=== PATIENT | female | born 1995 | race American Indian/Alaskan Native ===

== ENCOUNTER 2016-11-05 18:15 | Emergency (ER) | payer MEDICAID, OTHER ==
[2016-11-05 19:54] VITALS: BP 132/73
[2016-11-05] MEDS ORDERED: Acetaminophen 325 MG Tab PO ONE (20:46)
[2016-11-05] MEDS ORDERED: Acetaminophen 325 MG Tab ONE (20:57)
--- NOTE | 2016-11-05 20:58 | EDM.PDOC ---
ED HPI GI/ABDOMINAL - General Chief Complaint: Genitourinary Problem Stated Complaint: BLADDER INFECTION Time Seen by Provider: 11/05/16 19:30 Source of Information: Reports: Patient History Limitations: Reports: No limitations - History of Present Illness INITIAL COMMENTS - FREE TEXT/NARRATIVE: sick since saturday with increased frequency of urination with back pain. Last tylenol noon today. LMP May, No period yet since previous depo, unsure last shot. 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: - Past Surgical History Musculoskeletal Surgical History: Reports: Other (see below) Other Musculoskeletal Surgeries/Procedures:: wrist surgery Social & Family History - Family History Family Medical History: Noncontributory - Tobacco Use Smoking Status *Q: Former Smoker Years of Tobacco use: 1 Used Tobacco, but Quit: Yes Month Tobacco Last Used: october 2013 Second Hand Smoke Exposure: No - Caffeine Use Caffeine Use: Reports: None - Alcohol Use Days Per Week of Alcohol Use: 0 - Recreational Drug Use Recreational Drug Use: No - Living Situation & Occupation Living situation: Reports: with family Occupation: employed ED ROS GENERAL - Review of Systems Review Of Systems: See Below Constitutional: Reports: fever HEENT: Reports: No symptoms Respiratory: Reports: No Symptoms Cardiovascular: Reports: No symptoms GI/Abdominal: Reports: Abdominal pain : Reports: dysuria, flank pain, frequency, irregular menses, urgency Skin: Reports: no symptoms Neurological: Reports: No Symptoms ED EXAM, GI/ABD - Physical Exam Exam: See Below Exam Limited By: No limitations General Appearance: alert, mild distress Eyes: bilateral: EOMI Ears: normal external exam, normal TMs Nose: normal inspection Throat/Mouth: Normal voice, No airway compromise, Inflammation (mild) Head: atraumatic, normocephalic Neck: lymphadenopathy (L), lymphadenopathy (R) (mild) Respiratory/Chest: no respiratory distress, lungs clear, normal breath sounds Cardiovascular: normal peripheral pulses, regular rate, rhythm, tachycardia GI/Abdominal: normal bowel sounds, soft, tenderness (suprapubic) Back Exam: paraspinal tenderness (low lumbar) Extremities: normal inspection Neurological: alert, oriented, normal cognition Psychiatric: normal affect Skin Exam: Warm, Dry, Intact, Normal color. No: Diaphoretic, Erythema Course - Vital Signs Last Recorded V/S: Last Vital Signs Temp 101 F H 11/05/16 19:25 Pulse 121 H 11/05/16 19:25 Resp 16 11/05/16 19:25 BP 132/73 11/05/16 19:25 Pulse Ox 100 11/05/16 19:25 - Orders/Labs/Meds Labs: Laboratory Tests 11/05/16 11/05/16 Range/Units 19:34 20:43 HCG, Qual Negative Urine Color Yellow (YELLOW) Urine Appearance Cloudy (CLEAR) Urine pH 7.0 (5.0-9.0) Ur Specific [place] 1.015 (1.005-1.030) Urine Protein 30 H (NEGATIVE) Urine Glucose (UA) Negative (NEGATIVE) Urine Ketones Negative (NEGATIVE) Urine Occult Blood Moderate H (NEGATIVE) Urine Nitrite Negative (NEGATIVE) Urine Bilirubin Negative (NEGATIVE) Urine Urobilinogen 0.2 (0.2-1.0) mg/dL Ur Leukocyte Esterase Small H (NEGATIVE) Urine RBC 5-10 H /HPF Urine WBC 40-50 H (0-5/HPF) /HPF Ur Epithelial Cells Few /HPF Urine Bacteria Many H (0-FEW/HPF) /HPF Meds: Medications Discontinued Medications Generic Name Dose Route Start Last Admin Trade Name Moiz PRN Reason Stop Dose Admin Acetaminophen 650 mg 11/05/16 20:46 11/05/16 20:55 Tylenol PO 11/05/16 20:47 650 mg NOW ONE Administration Acetaminophen Confirm 11/05/16 20:57 11/05/16 21:06 Tylenol Administered 11/05/16 20:58 Not Given Dose 325 mg .ROUTE .STK-MED ONE Nitrofurantoin Macrocrystals 100 mg 11/05/16 21:29 11/05/16 21:35 Macrobid PO 11/05/16 21:30 100 mg ONETIME ONE Administration Penicillin G Procaine/Benzathine 1.2 millunits 11/05/16 21:39 11/05/16 21:44 Bicillin C-R 600/600 IM 11/05/16 21:40 1.2 millunits ONETIME ONE Administration Phenazopyridine HCl 190 mg 11/05/16 21:29 11/05/16 21:35 Urinary Pain Relief PO 11/05/16 21:30 190 mg ONETIME ONE Administration Departure - Departure Time of Disposition: 21:32 Disposition: Home, Self-Care 01 Condition: fair Clinical Impression: Strep pharyngitis UTI (urinary tract infection) Qualifiers: Urinary tract infection type: acute cystitis Hematuria presence: with hematuria Qualified Code(s): N30.01 - Acute cystitis with hematuria Instructions: Strep Throat, [id number], Urinary Tract Infection, Adult, Easy- to-Read Referrals: Tia Paniagua [Primary Care Provider] - Forms: ED Department Discharge Additional Instructions: increase fluid intake tylenol or ibuprofen alternate every 4 hours for pain / fever clinic recheck this week Macrobid 100mg twice daily for 5 days phenazopyridine 190mg every 8 hours as needed for urinary symptoms
[2016-11-05] MEDS ORDERED: Nitrofurantoin Monohydrate/Macrocrystalline 100 MG Cap PO ONE (21:29)
[2016-11-05] MEDS ORDERED: Phenazopyridine 95 MG Tab PO ONE (21:29)
[2016-11-05] MEDS ORDERED: Penicillin G Benzathine/Procaine 600-600 1.2 Millunits/2 ML Syringe IM ONE (21:39)
== END 2016-11-05 22:15 | disposition home or self-care (01) ==
LOC: DL.ED 18:15
DX: N30.01 Acute cystitis with hematuria (principal); J02.0 Streptococcal pharyngitis; Z87.891 Personal history of nicotine dependence
CPT/HCPCS: 36415; 81001; 84703; 87430; 96372; 99284; A9270; J0558; 99283

== ENCOUNTER 2018-04-21 16:59 | Emergency (ER) | payer MEDICAID, OTHER ==
[2018-04-21] MEDS ORDERED: diphenhydrAMINE 25 MG Tab PO ONE (17:00)
[2018-04-21] MEDS ORDERED: Amoxicillin/Clavulanate K 875-125 MG Tab PO ONE (17:00)
[2018-04-21 17:05] VITALS: BP 120/72
[2018-04-21] MEDS ORDERED: Amoxicillin 500 MG Cap PO ONE (17:19)
[2018-04-21] MEDS ORDERED: Ibuprofen 800 MG Tab PO ONE (17:21)
[2018-04-21] MEDS ORDERED: GI Cocktail Oral Solution 30 ML PO ONE (17:21)
[2018-04-21] MEDS ORDERED: Amoxicillin/Clavulanate K 875-125 MG Tab ONE (18:25)
--- NOTE | 2018-04-21 18:25 | EDM.PDOC ---
Scribed by Verito Hutchinson 04/21/18 [id number] for Vladimir Schmidt MD ED HPI GENERAL MEDICAL PROBLEM - General Chief Complaint: ENT Problem Stated Complaint: HEADACHE, BACK PAIN, HARD TO SWALLOW [id number] Time Seen by Provider: 04/21/18 17:03 Source of Information: Reports: Patient, RN, RN Notes Reviewed History Limitations: Reports: No Limitations - History of Present Illness INITIAL COMMENTS - FREE TEXT/NARRATIVE: Patient presents to ER with complaint that she has been sick for 3 days with sore throat, bilateral earache, headache, fever, chills and body aches. Denies nausea or vomiting. States that she has had very little cough. She denies any urinary symptoms. Onset Date: 04/19/18 Duration: Getting Worse Location: Reports: Generalized Quality: Reports: Ache Severity: Moderate Improves with: Reports: None Worsens with: Reports: None Associated Symptoms: Reports: No Other Symptoms Headache Pain Score (Numeric/FACES): 9 - Related Data Allergies Allergy/AdvReac Type Severity Reaction Status Date / Time No Known Allergies Allergy Verified 04/21/18 17:05 Home Meds: Home Meds Acetaminophen [Tylenol] 11/05/16 [History] medroxyPROGESTERone [Depo-Provera] 1 dose IM ASDIRECTED 11/05/16 [History] Past Medical History - Past Health History Medical/Surgical History: Denies 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 ED EXAM, ENT - Physical Exam Exam: See Below Exam Limited By: No Limitations General Appearance: Other (acutely ill but nontoxic looking) Eye Exam: Bilateral Eye: EOMI, PERRL, Other (watery slightly swollen conjunctiva without erythema) Ears: Other (bilateral TM erythematous, bulging and dull. No drainage. ) Nose: Other (mild congestion small amount of clear drainage. ) Mouth/Throat: Pharyngeal Erythema, Throat Swelling. No: Tongue Swelling, Tonsillar Erythema, Tonsillar Exudates, Tonsillar Swelling Head: Atraumatic, Normocephalic Neck: Other (cervical lymphadenopathy. No nuchal rigidity) Respiratory/Chest: No Respiratory Distress, Lungs Clear, Normal Breath Sounds, No Accessory Muscle Use, Chest Non-Tender Cardiovascular: Normal Peripheral Pulses, Regular Rate, Rhythm GI/Abdominal: Normal Bowel Sounds (Female) Exam: Deferred Rectal (Female) Exam: Deferred Back: Normal Inspection Extremities: Normal Inspection, Normal Range of Motion, Non-Tender, No Pedal Edema, Normal Capillary Refill Neurological: Alert, Oriented, CN II-XII Intact, Normal Cognition, Normal Gait, Normal Reflexes, No Motor/Sensory Deficits Psychiatric: Normal Affect, Normal Mood Skin: Warm, Dry, Intact, Normal Color, No Rash Course - Vital Signs Last Recorded V/S: Last Vital Signs Temp 36.1 C 04/21/18 17:01 Pulse 99 04/21/18 17:01 Resp 18 04/21/18 17:01 BP 120/72 04/21/18 17:01 Pulse Ox 98 04/21/18 17:01 - Orders/Labs/Meds Orders: Active Orders 24 hr Category Date Time Status CHLAMYDIA AND GONORRHEA BY TMA Routine Lab 04/21/18 17:11 Received CULTURE STREP A CONFIRMATION [] Stat Lab 04/21/18 17:11 Results STREP SCRN A RAPID W CULT CONF [] Stat Lab 04/21/18 17:11 Results Labs: Laboratory Tests 04/21/18 Range/Units 17:11 Urine Color Yellow (YELLOW) Urine Appearance Cloudy (CLEAR) Urine pH 6.0 (5.0-9.0) Ur Specific [place] 1.020 (1.005-1.030) Urine Protein Negative (NEGATIVE) Urine Glucose (UA) Negative (NEGATIVE) Urine Ketones Negative (NEGATIVE) Urine Occult Blood Trace-intact H (NEGATIVE) Urine Nitrite Negative (NEGATIVE) Urine Bilirubin Negative (NEGATIVE) Urine Urobilinogen 0.2 (0.2-1.0) mg/dL Ur Leukocyte Esterase Small H (NEGATIVE) Urine RBC 0-5 /HPF Urine WBC 5-10 H (0-5/HPF) /HPF Ur Epithelial Cells Moderate H /HPF Amorphous Sediment Few (0/HPF) /HPF Urine Bacteria Moderate H (0-FEW/HPF) /HPF Urine Mucus Few H /LPF Rapid strep negative. Meds: Medications Discontinued Medications Generic Name Dose Route Start Last Admin Trade Name Freq PRN Reason Stop Dose Admin Al Hydroxide/Mg Hydroxide 30 ml 04/21/18 17:21 04/21/18 17:26 Gi Cocktail PO 04/21/18 17:22 30 ml ONETIME ONE Administration Amoxicillin 500 mg 04/21/18 17:19 04/21/18 17:26 Amoxil PO 04/21/18 17:20 500 mg ONETIME ONE Administration Ibuprofen 800 mg 04/21/18 17:21 04/21/18 17:26 Motrin PO 04/21/18 17:22 800 mg ONETIME ONE Administration Departure - Departure Time of Disposition: 18:18 Disposition: Home, Self-Care 01 Condition: Good Clinical Impression: Viral URI Otitis media Qualifiers: Otitis media type: suppurative Chronicity: acute Laterality: bilateral Recurrence: not specified as recurrent Spontaneous tympanic membrane rupture: without spontaneous rupture Qualified Code(s): H66.003 - Acute suppurative otitis media without spontaneous rupture of ear drum, bilateral Acute headache Qualifiers: Headache type: unspecified Intractability: not intractable Qualified Code(s): R51 - Headache - Discharge Information Instructions: Otitis Media, Adult, [id number], Viral Respiratory Infection, [id number], General Headache Without Cause, [id number] Forms: ED Department Discharge Additional Instructions: RX: Augmentin 875mg. RX: Zyrtec 10mg. RX: Naprosyn 500mg. Follow up in clinic if not improving in 2 to 3 days. Rest and drink plenty of fluids. - My Orders Last 24 Hours: My Active Orders 04/21/18 17:11 CHLAMYDIA AND GONORRHEA BY TMA Routine CULTURE STREP A CONFIRMATION [RM] Stat STREP SCRN A RAPID W CULT CONF [RM] Stat - Assessment/Plan Last 24 Hours: My Active Orders 04/21/18 17:11 CHLAMYDIA AND GONORRHEA BY TMA Routine CULTURE STREP A CONFIRMATION [RM] Stat STREP SCRN A RAPID W CULT CONF [RM] Stat I have read and agree with the documentation that has been completed regarding this visit. By signing this record, I attest that the documentation was completed in my physical presence and is an accurate record of the encounter.
[2018-04-21] MEDS ORDERED: diphenhydrAMINE 25 MG Tab ONE (18:26)
== END 2018-04-21 18:30 | disposition home or self-care (01) ==
LOC: DL.ED 16:59
DX: J06.9 Acute upper respiratory infection, unspecified (principal); H66.003 Acute suppurative otitis media without spontaneous rupture of ear drum, bilateral; R51 Headache
CPT/HCPCS: 81001; 87081; 87430; 87491; 87591; 99284; A9270

== ENCOUNTER 2018-05-24 00:40 | Emergency (ER) | payer MEDICAID ==
[2018-05-24 00:45] VITALS: BP 137/89
[2018-05-24] MEDS ORDERED: LORazepam 0.5 MG Tab PO ONE (00:57)
[2018-05-24] MEDS ORDERED: hydrOXYzine HCl 25 MG Tab ONE (01:04)
--- NOTE | 2018-05-24 01:17 | EDM.PDOCBH ---
ED HPI GENERAL MEDICAL PROBLEM - General Chief Complaint: Behavioral/Psych Stated Complaint: CANT BREATHE AND ANXIETY [id number] Time Seen by Provider: 05/24/18 00:45 Source of Information: Reports: Patient History Limitations: Reports: No Limitations - History of Present Illness INITIAL COMMENTS - FREE TEXT/NARRATIVE: C/o panic attack. Hx anxiety. Stes tonight triggered by learning dad was placed in an induced coma. Hx brain trauma. Has been on prozac, Stated was told when had panic attack to take additional. Took one about one hour prior but wan't helping. Denies drug use, rare tobacco use. Etoh yesterday and normally doesn't drink. 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: Psychiatric History: Reports: Anxiety, Depression - Past Surgical History Musculoskeletal Surgical History: Reports: Other (See Below) Social & Family History - Family History Family Medical History: Noncontributory - Tobacco Use Smoking Status *Q: Current Every Day Smoker Years of Tobacco use: 1 Packs/Tins Daily: 0.1 Second Hand Smoke Exposure: Yes - Caffeine Use Caffeine Use: Reports: None - Recreational Drug Use Recreational Drug Use: No - Living Situation & Occupation Living situation: Reports: with Family Occupation: Employed ED ROS GENERAL - Review of Systems Review Of Systems: ROS reveals no pertinent complaints other than HPI. ED EXAM, BEHAVIORAL HEALTH - Physical Exam Exam: See Below Exam Limited By: No Limitations General Appearance: Alert, Moderate Distress (crying, hyperventilating) Eye Exam: Bilateral Eye: EOMI, PERRL Ears: Normal External Exam, Normal TMs Nose: Normal Inspection Throat/Mouth: Normal Inspection, Normal Lips, Normal Voice Head: Atraumatic, Normocephalic Neck: Normal Inspection Respiratory/Chest: No Respiratory Distress. No: Normal Breath Sounds Cardiovascular: Normal Peripheral Pulses, Regular Rate, Rhythm, Tachycardia GI/Abdominal: Normal Bowel Sounds Neurological: Alert, Normal Cognition, Oriented x 3 Psychiatric: Alert, Restless, Tearful Skin Exam: Warm, Dry, Intact, Normal color COURSE, BEHAVIORAL HEALTH COMP - Course Vital Signs: Last Vital Signs Temp 97.5 F 05/24/18 00:43 Pulse 134 H 05/24/18 00:43 Resp 22 H 05/24/18 00:43 BP 137/89 05/24/18 00:43 Pulse Ox 100 05/24/18 00:43 Orders, Labs, Meds: Medications Discontinued Medications Generic Name Dose Route Start Last Admin Trade Name Moiz PRN Reason Stop Dose Admin Acetaminophen 650 mg 05/24/18 01:18 05/24/18 01:21 Tylenol PO 05/24/18 01:19 650 mg NOW ONE Administration Hydroxyzine HCl Confirm 05/24/18 01:04 05/24/18 01:08 Atarax Administered 05/24/18 01:05 Not Given Dose 50 mg .ROUTE .STK-MED ONE Lorazepam 0.5 mg 05/24/18 00:57 05/24/18 01:07 Ativan PO 05/24/18 00:58 0.5 mg ONETIME ONE Administration Departure - Departure Time of Disposition: 01:12 Disposition: Home, Self-Care 01 Condition: Good Clinical Impression: Anxiety, Panic disorder - Discharge Information *PRESCRIPTION DRUG MONITORING PROGRAM REVIEWED*: Not Applicable Instructions: Panic Attack, [id number] Referrals: Scarlet Chaidez NP [Primary Care Provider] - Forms: ED Department Discharge Additional Instructions: avoid caffeine hydroxyzine 25mg one every 6 hours as needed for severe anxiety clinic follow up this week to discuss alternatives for panic episodes
[2018-05-24] MEDS ORDERED: Acetaminophen 325 MG Tab PO ONE (01:18)
== END 2018-05-24 01:22 | disposition home or self-care (01) ==
LOC: DL.ED 00:40
DX: F41.0 Panic disorder [episodic paroxysmal anxiety] (principal); F17.210 Nicotine dependence, cigarettes, uncomplicated
CPT/HCPCS: 99283; A9270

== ENCOUNTER 2018-09-23 17:11 | Emergency (ER) | payer MEDICAID ==
[2018-09-23 18:01] VITALS: BP 126/77
--- NOTE | 2018-09-23 18:38 | EDM.PDOC ---
Scribed by Verito Hutchinson 09/23/18 1835 for Vladimir Schmidt MD <Vladimir Schmidt - Last Filed: 09/23/18 18:37> ED HPI GENERAL MEDICAL PROBLEM - General Chief Complaint: Headache Stated Complaint: BAD HEADACHES [id number] Time Seen by Provider: 09/23/18 18:03 Source of Information: Reports: Patient, RN, RN Notes Reviewed History Limitations: Reports: No Limitations - History of Present Illness INITIAL COMMENTS - FREE TEXT/NARRATIVE: Patient presents to the ER with a headache for the last month. She was seen in the clinic 2 days ago. She has also seen an eye doctor. Denies history of migraines. Admits to history of sinus disease. Pain is located in the frontal and maxillary facial region. 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 - Related Data Allergies Allergy/AdvReac Type Severity Reaction Status Date / Time No Known Allergies Allergy Verified 09/23/18 17:57 Home Meds: Home Meds FLUoxetine HCl [Prozac] 20 mg PO DAILY 05/24/18 [History] Past Medical History - Past Health History Medical/Surgical History: Denies Medical/Surgical History HEENT History: Reports: Sinusitis Genitourinary History: Reports: UTI, Recurrent 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 - Physical Exam Exam: See Below Exam Limited By: No Limitations General Appearance: Alert, WD/WN, No Apparent Distress Eye Exam: Bilateral Eye: EOMI, Normal Inspection, PERRL Ears: Normal External Exam, Normal Canal, Hearing Grossly Normal, Normal TMs Nose: No Blood, Nasal Drainage (Small amt. of clear mucus), Other (Inflamed nasal mucosa, injected turbinates) Throat/Mouth: Normal Inspection, Normal Lips, Normal Teeth, Normal Gums, Normal Oropharynx, Normal Voice, No Airway Compromise Head Exam: Atraumatic, Normocephalic, Sinus Tenderness (Frontal and maxillary). No: Scalp Tenderness, Facial Swelling Neck: Normal Inspection, Supple, Non-Tender, Full Range of Motion. No: Lymphadenopathy (L), Lymphadenopathy (R) Respiratory/Chest: No Respiratory Distress, Lungs Clear, Normal Breath Sounds, No Accessory Muscle Use, Chest Non-Tender Cardiovascular: Regular Rate, Rhythm GI/Abdominal: Normal Bowel Sounds, Soft, Non-Tender (Female) Exam: Deferred Neuro Exam (Abbreviated): Alert, Oriented, CN II-XII Intact, Normal Cognition, Normal Gait, No Motor/Sensory Deficits Back Exam: Normal Inspection Extremities: Normal Inspection Psychiatric: Normal Affect, Normal Mood Skin Exam: Warm, Dry, Intact, Normal Color, No Rash Course - Vital Signs Last Recorded V/S: Last Vital Signs Temp 97.8 F 09/23/18 18:00 Pulse 76 09/23/18 18:00 Resp 16 09/23/18 18:00 BP 126/77 09/23/18 18:00 Pulse Ox 97 09/23/18 18:00 - Orders/Labs/Meds Orders: Active Orders 24 hr Category Date Time Status Head wo Cont [CT] Urgent Exams 09/23/18 18:36 Ordered Max Facial Sinus wo Cont [CT] Urgent Exams 09/23/18 18:35 Taken CULTURE URINE [RM] Stat Lab 09/23/18 19:56 Received Sodium Chloride 0.9% [Normal Saline] 1,000 ml Med 09/23/18 20:00 Active IV .BOLUS Medication Orders Sodium Chloride (Normal Saline) 1,000 mls @ 999 mls/hr IV .BOLUS ONE Stop: 09/23/18 21:00 Last Admin: 09/23/18 20:07 Dose: 999 mls/hr Labs: Laboratory Tests 09/23/18 09/23/18 09/23/18 Range/Units 18:58 18:58 18:58 WBC 7.4 (5.0-10.0) 10^3/uL RBC 4.70 (4.2-5.4) 10^6/uL Hgb 13.6 D (12.0-16.0) g/dL Hct 41.8 (37.0-47.0) % MCV 88.9 D (80-100) fL MCH 28.9 (27.0-34.0) pg MCHC 32.5 L (33.0-35.0) g/dL Plt Count 361 D (150-450) 10^3/uL Neut % (Auto) 60.6 (42.2-75.2) % Lymph % (Auto) 28.8 (20.5-50.1) % [place] % (Auto) 7.9 (2-8) % Eos % (Auto) 2.4 (1.0-3.0) % Baso % (Auto) 0.3 (0.0-1.0) % Sodium 136 (135-145) mmol/L Potassium 4.1 (3.6-5.0) mmol/L Chloride 102 (101-111) mmol/L Carbon Dioxide 23.0 (21.0-31.0) mmol/L Anion Gap 15.1 BUN 11 (7-18) mg/dL Creatinine 0.6 (0.6-1.3) mg/dL Est Cr Clr Drug Dosing 141.81 mL/min Estimated GFR (MDRD) > 60 BUN/Creatinine Ratio 18.33 Glucose 73 L (74-105) mg/dL Calcium 9.1 (8.4-10.2) mg/dl Total Bilirubin 0.5 (0.2-1.0) mg/dL AST 26 (10-42) IU/L ALT 22 (10-60) IU/L Alkaline Phosphatase 85 (42-121) IU/L C-Reactive Protein 1.0 (0.0-1.3) mg/dL Total Protein 8.3 H (6.7-8.2) g/dl Albumin 4.0 (3.2-5.5) g/dl Globulin 4.3 Albumin/Globulin Ratio 0.93 Urine Color (YELLOW) Urine Appearance (CLEAR) Urine pH (5.0-9.0) Ur Specific [place] (1.005-1.030) Urine Protein (NEGATIVE) Urine Glucose (UA) (NEGATIVE) Urine Ketones (NEGATIVE) Urine Occult Blood (NEGATIVE) Urine Nitrite (NEGATIVE) Urine Bilirubin (NEGATIVE) Urine Urobilinogen (0.2-1.0) mg/dL Ur Leukocyte Esterase (NEGATIVE) Urine HCG, Qual 09/23/18 09/23/18 Range/Units 19:56 19:56 WBC (5.0-10.0) 10^3/uL RBC (4.2-5.4) 10^6/uL Hgb (12.0-16.0) g/dL Hct (37.0-47.0) % MCV (80-100) fL MCH (27.0-34.0) pg MCHC (33.0-35.0) g/dL Plt Count (150-450) 10^3/uL Neut % (Auto) (42.2-75.2) % Lymph % (Auto) (20.5-50.1) % [place] % (Auto) (2-8) % Eos % (Auto) (1.0-3.0) % Baso % (Auto) (0.0-1.0) % Sodium (135-145) mmol/L Potassium (3.6-5.0) mmol/L Chloride (101-111) mmol/L Carbon Dioxide (21.0-31.0) mmol/L Anion Gap BUN (7-18) mg/dL Creatinine (0.6-1.3) mg/dL Est Cr Clr Drug Dosing mL/min Estimated GFR (MDRD) BUN/Creatinine Ratio Glucose (74-105) mg/dL Calcium (8.4-10.2) mg/dl Total Bilirubin (0.2-1.0) mg/dL AST (10-42) IU/L ALT (10-60) IU/L Alkaline Phosphatase (42-121) IU/L C-Reactive Protein (0.0-1.3) mg/dL Total Protein (6.7-8.2) g/dl Albumin (3.2-5.5) g/dl Globulin Albumin/Globulin Ratio Urine Color Yellow (YELLOW) Urine Appearance Slightly cloudy (CLEAR) Urine pH 5.5 (5.0-9.0) Ur Specific [place] >= 1.030 (1.005-1.030) Urine Protein Negative (NEGATIVE) Urine Glucose (UA) Negative (NEGATIVE) Urine Ketones Negative (NEGATIVE) Urine Occult Blood Trace-intact H (NEGATIVE) Urine Nitrite Negative (NEGATIVE) Urine Bilirubin Negative (NEGATIVE) Urine Urobilinogen 0.2 (0.2-1.0) mg/dL Ur Leukocyte Esterase Trace H (NEGATIVE) Urine HCG, Qual Negative Meds: Medications Generic Name Dose Route Start Last Admin Trade Name Moiz PRN Reason Stop Dose Admin Sodium Chloride 1,000 mls @ 999 mls/hr 09/23/18 20:00 09/23/18 20:07 Normal Saline IV 09/23/18 21:00 999 mls/hr .BOLUS ONE Administration Discontinued Medications Generic Name Dose Route Start Last Admin Trade Name Moiz PRN Reason Stop Dose Admin Diphenhydramine HCl 50 mg 09/23/18 20:00 09/23/18 20:07 Benadryl IVPUSH 09/23/18 20:01 50 mg ONETIME ONE Administration Ondansetron HCl 4 mg 09/23/18 20:03 09/23/18 20:10 Zofran IV 09/23/18 20:04 4 mg ONETIME ONE Administration - Re-Assessments/Exams Free Text/Narrative Re-Assessment/Exam: 09/23/18 18:59 Care of pt transferred 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 Departure - Departure Disposition: Home, Self-Care 01 Clinical Impression: Arachnoid cyst Headache Qualifiers: Headache type: unspecified Headache chronicity pattern: acute headache Intractability: intractable Qualified Code(s): R51 - Headache - Discharge Information Instructions: Arachnoid Cysts, Migraine Headache, [id number], General Headache Without Cause, [id number] Forms: ED Department Discharge Additional Instructions: Drink plenty of water Continue to use Ibuprofen and Tylenol as directed for headaches Call Scarlet Chaidez's office tomorrow and request a referral to Neurology at [facility] in [place] I discussed your head CT with Dr. Maldonado at [facility] in [place] and he would like you to follow up in the clinic in [place] next week. - My Orders Last 24 Hours: My Active Orders 09/23/18 19:56 CULTURE URINE [RM] Stat 09/23/18 20:00 Sodium Chloride 0.9% [Normal Saline] 1,000 ml IV .BOLUS - Assessment/Plan Last 24 Hours: My Active Orders 09/23/18 19:56 CULTURE URINE [RM] Stat 09/23/18 20:00 Sodium Chloride 0.9% [Normal Saline] 1,000 ml IV .BOLUS <Stephanie Mart - Last Filed: 09/23/18 20:19> Course - Radiology Interpretation Free Text/Narrative:: Head CT: FINDINGS: Brain: Extra-axial infratentorial cyst along left cerebellar hemisphere measuring 2 x 3 x 1.5 cm, consistent with arachnoid cyst. There is no sign of acute intracranial hemorrhage or cerebral edema. Midline shift: No midline shift. Ventricles: Normal. No hydrocephalus. Bones/joints: Normal. Skull base and overlying calvarium are intact. No lytic or osteosclerotic lesions. Sinuses: Visualized sinuses are unremarkable. No acute sinusitis. Mastoid air cells: Visualized mastoid air cells are unremarkable. No mastoid effusion. Soft tissues: Unremarkable. IMPRESSION: 1. No acute intracranial process. 2. Left posterior fossa arachnoid cyst. Thank you for allowing us to participate in the care of your patient. Dictated and Authenticated by: Adam Hightower MD 09/23/2018 7:20 PM Central Time ([place] & [place]) Maxillofacial CT: FINDINGS: Frontal sinuses: Normal. No air-fluid levels. Ethmoid air cells: Normal. No air-fluid levels. Sphenoid sinuses: Normal. No air-fluid levels. Maxillary sinuses: Normal. No air-fluid levels. Orbits: Orbital floors, roofs, lateral post and the lamina papyracea are intact. There is no retroorbital emphysema, fluid collection, mass, or stranding of intraconal fat. Extraocular muscles are normal in caliber. Optic nerves are normal. Globes are normal in contour and density. Nasal cavity/Septum: Unremarkable. Soft tissues: No facial soft tissue swelling, emphysema or foreign body. Bones/joints: There is spina bifida occulta at C1, a congenital variant.There are no suspicious lytic or osteosclerotic lesions.Skull base, maxillae, zygomatic arches, pterygoid processes, hard palate, nasal bones and mandible are intact. IMPRESSION: Clear paranasal sinuses. Thank you for allowing us to participate in the care of your patient. Dictated and Authenticated by: Adam Hightower MD 09/23/2018 7:21 PM Central Time ([place] & [place]) See rad report Departure - Departure Time of Disposition: 20:17 Condition: Fair - Discharge Information *PRESCRIPTION DRUG MONITORING PROGRAM REVIEWED*: No *COPY OF PRESCRIPTION DRUG MONITORING REPORT IN PATIENT JENNY: No I have read and agree with the documentation that has been completed regarding this visit. By signing this record, I attest that the documentation was completed in my physical presence and is an accurate record of the encounter.
[2018-09-23 19:23] LABS: ANION GAP 15.1; CHLORIDE,CL 102 mmol/L (101-111); SODIUM,NA 136 mmol/L (135-145)
[2018-09-23] MEDS ORDERED: diphenhydrAMINE 50 MG/ML SDV IVPUSH ONE (20:00)
[2018-09-23] MEDS ORDERED: Sodium Chloride 0.9% 1,000 ML IV ONE (20:00)
[2018-09-23] MEDS ORDERED: Ondansetron 4 MG/2 ML SDV IV ONE (20:03)
== END 2018-09-23 20:35 | disposition home or self-care (01) ==
LOC: DL.ED 17:11
DX: G93.0 Cerebral cysts (principal); R51 Headache; Z79.899 Other long term (current) drug therapy
CPT/HCPCS: 36415; 70450; 70486; 80053; 81001; 81025; 85025; 86140; 87086; 96374; 96375; 99284; J1200; J2405; J7030

== ENCOUNTER 2019-09-15 15:59 | Emergency (ER) | payer MEDICAID ==
[2019-09-15] MEDS ORDERED: HYDROmorphone 1 MG/ML Syringe IVPUSH ONE (16:15)
[2019-09-15 17:27] VITALS: BP 145/75; PULSE 78
--- NOTE | 2019-09-15 17:30 | EDM.PDOC ---
ED HPI GENERAL MEDICAL PROBLEM - General Chief Complaint: Lower Extremity Injury/Pain Stated Complaint: AMBULANCE Time Seen by Provider: 09/15/19 16:10 Source of Information: Reports: Patient - History of Present Illness INITIAL COMMENTS - FREE TEXT/NARRATIVE: Patricia is a 24-year-old woman who comes in today after having her left ankle squished between the car door and the wall of the building. She is having quite a bit of pain on the inner portion of her left ankle. She has significant pain with any movement of this. 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: Neurological History: Reports: Other (See Below) Other Neuro History: cyst in left brain Psychiatric History: Reports: Anxiety, Depression Endocrine/Metabolic History: Reports: Diabetes, Type II - Past Surgical History Musculoskeletal Surgical History: Reports: Other (See Below) Social & Family History - Family History Family Medical History: Noncontributory - Caffeine Use Caffeine Use: Reports: Energy Drinks, Soda - Living Situation & Occupation Living situation: Reports: with Family Occupation: Employed Review of Systems - Review of Systems Review Of Systems: Comprehensive ROS is negative, except as noted in HPI. ED EXAM, GENERAL - Physical Exam Exam: See Below Free Text/Narrative:: General: Patricia is a 24-year-old woman in no acute distress She has a large amount of ecchymosis over her left medial malleolus. Peripheral pulses are intact. She has good temperature and touch sensation to her entire foot Peripheral IV was started, she was given 0.5 mg of IV hydromorphone. Three-view x-ray of her left ankle does not show any acute fracture or dislocation She was also given 30 mg of IV Toradol Course - Vital Signs Last Recorded V/S: Last Vital Signs Temp 36.7 C 09/15/19 16:05 Pulse 78 09/15/19 16:05 Resp 18 09/15/19 16:05 BP 145/75 H 09/15/19 16:05 Pulse Ox 99 09/15/19 16:05 - Orders/Labs/Meds Orders: Active Orders 24 hr Category Date Time Status Ankle Min 3V Lt [CR] Urgent Exams 09/15/19 16:17 Taken Meds: Medications Discontinued Medications Generic Name Dose Route Start Last Admin Trade Name Freq PRN Reason Stop Dose Admin Hydromorphone HCl 0.5 mg 09/15/19 16:15 09/15/19 16:22 Dilaudid IVPUSH 09/15/19 16:16 0.5 mg ONETIME ONE Administration Ketorolac Tromethamine 30 mg 09/15/19 18:02 09/15/19 18:08 Toradol IVPUSH 09/15/19 18:03 30 mg ONETIME ONE Administration Departure - Departure Time of Disposition: 18:14 Disposition: DC/Tfer to Medicaid [facility] 64 Clinical Impression: Contusion of ankle, left Qualifiers: Encounter type: initial encounter Qualified Code(s): S90.02XA - Contusion of left ankle, initial encounter - Discharge Information *PRESCRIPTION DRUG MONITORING PROGRAM REVIEWED*: Yes *COPY OF PRESCRIPTION DRUG MONITORING REPORT IN PATIENT JENNY: No Prescriptions: Hydrocodone/Acetaminophen [Hydrocodon-Acetaminophn 10-325] 0.5 - 1 tab PO Q8H PRN #9 tablet PRN Reason: Pain (Severe 7-10) Instructions: Contusion, [id number]-[id number] Forms: ED Department Discharge Sepsis Event Note - Focused Exam Vital Signs: Vital Signs Temp Pulse Resp BP Pulse Ox 09/15/19 16:05 36.7 C 78 18 145/75 H 99 Date Exam was Performed: 09/15/19 Time Exam was Performed: 18:10 - Problem List & Annotations (1) Contusion of ankle, left SNOMED Code(s): 99548718578786086 Code(s): S90.02XA - CONTUSION OF LEFT ANKLE, INITIAL ENCOUNTER Status: Acute Qualifiers: Encounter type: initial encounter Qualified Code(s): S90.02XA - Contusion of left ankle, initial encounter - Problem List Review Problem List Initiated/Reviewed/Updated: Yes - My Orders Last 24 Hours: My Active Orders 09/15/19 16:17 Ankle Min 3V Lt [CR] Urgent - Assessment/Plan Last 24 Hours: My Active Orders 09/15/19 16:17 Ankle Min 3V Lt [CR] Urgent Assessment:: Assessment: 1. Severe contusion of left ankle Plan: Plan: 1. She will use rest, ice, compression, and elevation to help with pain and swelling. I strongly encouraged her to come back in 5 to 6 days for recheck x- ray if she still has significant pain over the area, just in case there is an occult fracture that is not showing up on initial films. 2. I will also send her home with a small supply of hydrocodone/APAP, . [place] prescription drug monitoring program website was checked prior to this prescription being issued, she has had no recent narcotic prescriptions
[2019-09-15] MEDS ORDERED: Ketorolac 30 MG/ML SDV IVPUSH ONE (18:02)
== END 2019-09-15 18:25 ==
LOC: DL.ED 15:59
DX: S90.02XA Contusion of left ankle, initial encounter (principal); W23.0XXA Caught, crushed, jammed, or pinched between moving objects, initial encounter; Y93.89 Activity, other specified
CPT/HCPCS: 73610; 96374; 96375; 99284; J1170; J1885

== ENCOUNTER 2020-02-28 15:23 | Emergency (ER) | payer MEDICAID ==
[2020-02-28 15:39] VITALS: BP 114/75; PULSE 74
--- NOTE | 2020-02-28 16:01 | EDM.PDOC ---
ED HPI GENERAL MEDICAL PROBLEM - General Chief Complaint: Lower Extremity Injury/Pain Stated Complaint: NEED TO LOOD AT BOTH LEGS ANKLE AND KNEES PER PT Time Seen by Provider: 02/28/20 15:50 Source of Information: Reports: Patient History Limitations: Reports: No Limitations - History of Present Illness INITIAL COMMENTS - FREE TEXT/NARRATIVE: This 24 yo female patient reports to the ED with left foot/ankle pain. The patient reports she was wearing high heels on Saturday and fell. Th patient reports she had a hairline fracture of the foot about 1 month ago and has been experiencing increased pain in the foot. The patient reports she has been taking ibuprofen and Tylenol as well as using heat and ice. Onset Date: 02/26/20 Duration: Constant, Getting Worse Location: Reports: Lower Extremity, Left Quality: Reports: Ache, Dull Severity: Moderate Improves with: Reports: None Worsens with: Reports: None Context: Reports: Other Associated Symptoms: Reports: No Other Symptoms Bilateral Feet Pain Score (Numeric/FACES): 8 - Related Data Allergies Allergy/AdvReac Type Severity Reaction Status Date / Time No Known Allergies Allergy Verified 09/15/19 16:22 Home Meds: Home Meds FLUoxetine HCl [Prozac] 20 mg PO DAILY 05/24/18 [History] Ibuprofen [Ibu] 800 mg PO ASDIRECTED 02/28/20 [History] Past Medical History - Past Health History Medical/Surgical History: Denies Medical/Surgical History HEENT History: Reports: Sinusitis Genitourinary History: Reports: UTI, 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: Neurological History: Reports: Other (See Below) Other Neuro History: cyst in left brain Psychiatric History: Reports: Anxiety, Depression Endocrine/Metabolic History: Reports: Diabetes, Type II - Past Surgical History Musculoskeletal Surgical History: Reports: Other (See Below) Other Musculoskeletal Surgeries/Procedures:: hiar line fracture left ankle Social & Family History - Family History Family Medical History: Noncontributory - Tobacco Use Smoking Status *Q: Never Smoker - Caffeine Use Caffeine Use: Reports: Coffee - Recreational Drug Use Recreational Drug Use: No - Living Situation & Occupation Living situation: Reports: with Family Occupation: Employed Review of Systems - Review of Systems Review Of Systems: Comprehensive ROS is negative, except as noted in HPI. ED EXAM, GENERAL - Physical Exam Exam: See Below Exam Limited By: No Limitations General Appearance: Alert, WD/WN, Mild Distress Eye Exam: Bilateral Eye: EOMI, Normal Inspection, PERRL Ears: Normal External Exam, Normal Canal, Hearing Grossly Normal, Normal TMs Nose: Normal Inspection, Normal Mucosa, No Blood Throat/Mouth: Normal Inspection Head: Atraumatic, Normocephalic Neck: Normal Inspection, Supple, Non-Tender, Full Range of Motion Respiratory/Chest: No Respiratory Distress, Lungs Clear, Normal Breath Sounds, No Accessory Muscle Use, Chest Non-Tender Cardiovascular: Normal Peripheral Pulses, Regular Rate, Rhythm, No Edema, No Gallop, No JVD, No Murmur, No Rub GI/Abdominal: Normal Bowel Sounds, Soft, Non-Tender, No Organomegaly, No Distention, No Abnormal Bruit, No Mass (Female) Exam: Deferred Rectal (Female) Exam: Deferred Back Exam: Normal Inspection Extremities: Leg Pain (left foot pain with tenderness to touch.) Neurological: Alert, Oriented, CN II-XII Intact, Normal Cognition, Abnormal Gait Psychiatric: Normal Affect, Normal Mood Skin Exam: Warm, Dry, Intact, Normal Color, No Rash Lymphatic: No Adenopathy Course - Vital Signs Last Recorded V/S: Last Vital Signs Temp 36.6 C 02/28/20 15:35 Pulse 74 02/28/20 15:35 Resp 14 02/28/20 15:35 BP 114/75 02/28/20 15:35 Pulse Ox 99 02/28/20 15:35 Departure - Departure Time of Disposition: 16:22 Disposition: Home, Self-Care 01 Condition: Fair Clinical Impression: Strain of left foot Qualifiers: Encounter type: initial encounter Qualified Code(s): S96.912A - Strain of unspecified muscle and tendon at ankle and foot level, left foot, initial encounter - Discharge Information *PRESCRIPTION DRUG MONITORING PROGRAM REVIEWED*: Not Applicable *COPY OF PRESCRIPTION DRUG MONITORING REPORT IN PATIENT JENNY: Not Applicable Instructions: Foot Sprain Forms: ED Department Discharge Care Plan Goals: The patient was advised of the examination and x-ray results during the visit. The patient's foot/ankle was wrapped with an ROYER wrap while in the ED. The patient was encouraged to rest, ice, compress and elevate the extremity. If the patient has any additional symptoms or concerns, the patient should either return to the emergency department or visit her primary care facility. Sepsis Event Note (ED) - Evaluation Sepsis Screening Result: No Definite Risk - Focused Exam Vital Signs: Vital Signs Temp Pulse Resp BP Pulse Ox 02/28/20 15:35 36.6 C 74 14 114/75 99
--- NOTE | 2020-02-28 16:17 | CR ---
PROCEDURE INFORMATION: Exam: XR Left Foot Complete Exam date and time: 02/28/2020 4:01 PM Age: 24 years old Clinical indication: Other: Fall; Additional info: Left foot pain TECHNIQUE: Imaging protocol: XR Left foot. Views: 3 or more views. COMPARISON: No relevant prior studies available. FINDINGS: Bones/joints: There is no evidence of acute fracture. There is no evidence of joint malalignment or dislocation. Soft tissues: There are no soft tissue masses or fluid collections. IMPRESSION: 1. No evidence of acute fracture. 2. No evidence of acute dislocation.
== END 2020-02-28 16:29 | disposition home or self-care (01) ==
LOC: DL.ED 15:23
DX: S96.912A Strain of unspecified muscle and tendon at ankle and foot level, left foot, initial encounter (principal); F41.9 Anxiety disorder, unspecified; F32.9 Major depressive disorder, single episode, unspecified; E11.9 Type 2 diabetes mellitus without complications; Z79.899 Other long term (current) drug therapy; W19.XXXA Unspecified fall, initial encounter
CPT/HCPCS: 73630-LT; 99283-25

== ENCOUNTER 2021-02-10 06:30 | Emergency (ER) | payer MEDICAID ==
[2021-02-10 06:49] VITALS: BP 110/64; PULSE 86
[2021-02-10] MEDS ORDERED: Sodium Chloride 0.9% 1,000 ML IV ONE (07:16)
[2021-02-10 07:24] LABS: CHLORIDE,CL 104 mmol/L (98-107); SODIUM,NA 140 mmol/L (136-145)
--- NOTE | 2021-02-10 07:24 | EDM.PDOC ---
ED HPI GENERAL MEDICAL PROBLEM - General Chief Complaint: Abdominal Pain Stated Complaint: [id number] AB PAIN Time Seen by Provider: 02/10/21 07:00 Source of Information: Reports: Patient, RN, RN Notes Reviewed History Limitations: Reports: No Limitations - History of Present Illness INITIAL COMMENTS - FREE TEXT/NARRATIVE: Michelle is a 25 y/o female who presents to the ED via personal vehicle with complaints of abdominal pain. The patient states she awoke with a sharp, constant pain to her bilateral lower abdomen. The pain is now gone, but she notes the episode lasted about 15 minutes which caused her concern. Additionally, she noted suprapubic tenderness while voiding this AM and pain in her rectum while she attempted to defecate; she states she attempted to "push" but only air came out. She denies recent illness, fever, shaking chills, palpitations, nausea, vomiting, or diarrhea. She notes her menses is to start in a few days. She has not taken any medications for her symptoms. 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 Psychiatric History: Reports: Anxiety, Depression Endocrine/Metabolic History: Reports: Diabetes, Type II - Past Surgical History HEENT Surgical History: Reports: None Musculoskeletal Surgical History: Reports: Other (See Below) Other Musculoskeletal Surgeries/Procedures:: hair line fracture left ankle Social & Family History - Family History Family Medical History: No Pertinent Family History - Tobacco Use Tobacco Use Status *Q: Never Tobacco User Second Hand Smoke Exposure: No - Caffeine Use Caffeine Use: Reports: None - Recreational Drug Use Recreational Drug Use: No - Living Situation & Occupation Living situation: Reports: with Family Occupation: Employed ED ROS GENERAL - Review of Systems Review Of Systems: Comprehensive ROS is negative, except as noted in HPI. ED EXAM, GI/ABD - Physical Exam Exam: See Below Exam Limited By: No Limitations General Appearance: Alert, No Apparent Distress Eyes: Bilateral: Normal Appearance, EOMI Throat/Mouth: Normal Inspection, Normal Oropharynx, Normal Voice, No Airway Compromise Head: Atraumatic, Normocephalic Neck: Normal Inspection, Supple, Non-Tender, Full Range of Motion. No: Lymphadenopathy (L), Lymphadenopathy (R) Respiratory/Chest: No Respiratory Distress, Lungs Clear, Normal Breath Sounds, No Accessory Muscle Use, Chest Non-Tender Cardiovascular: Normal Peripheral Pulses, Regular Rate, Rhythm, No Edema, No Gallop, No JVD, No Murmur, No Rub GI/Abdominal Exam: Soft, No Distention, No Abnormal Bruit, No Mass, Pelvis Stable, Tender (To palpation, diffuse to abdomen), Abnormal Bowel Sounds (Hyperactive bowel sounds). No: Guarding, Rigid, Rebound (Female) Exam: Deferred Rectal (Female) Exam: Deferred Back Exam: Normal Inspection, Full Range of Motion. No: CVA Tenderness (L), CVA Tenderness (R) Extremities: Normal Inspection, Normal Range of Motion, Non-Tender, Normal Capillary Refill, No Pedal Edema Neurological: Alert, Oriented, CN II-XII Intact, Normal Cognition, Normal Gait, No Motor/Sensory Deficits Psychiatric: Normal Affect, Normal Mood Skin Exam: Warm, Dry, Intact, Normal Color, No Rash. No: Cyanosis, Diaphoretic, Erythema, Jaundice, Mottled, Pallor Course - Vital Signs Last Recorded V/S: Last Vital Signs Temp 98.5 F 02/10/21 06:38 Pulse 86 02/10/21 06:38 Resp 18 02/10/21 06:38 BP 110/64 02/10/21 06:38 Pulse Ox 97 02/10/21 06:38 - Orders/Labs/Meds Orders: Active Orders 24 hr Category Date Time Status CULTURE URINE [RM] Stat Lab 02/10/21 08:05 Received UA W/MICROSCOPIC [URIN] Stat Lab 02/10/21 08:05 Results Labs: Laboratory Tests 02/10/21 02/10/21 02/10/21 Range/Units 07:00 07:00 07:00 WBC 8.9 (5.0-10.0) 10^3/uL RBC 4.45 (4.2-5.4) 10^6/uL Hgb 12.9 (12.0-16.0) g/dL Hct 40.6 (37.0-47.0) % MCV 91.2 (80-100) fL MCH 29.0 (27.0-34.0) pg MCHC 31.8 L (33.0-35.0) g/dL Plt Count 284 D (150-450) 10^3/uL Neut % (Auto) 59.2 (42.2-75.2) % Lymph % (Auto) 29.0 (20.5-50.1) % [place] % (Auto) 8.0 (2-8) % Eos % (Auto) 3.3 H (1.0-3.0) % Baso % (Auto) 0.5 (0.0-1.0) % Sodium 140 (136-145) mmol/L Potassium 4.0 (3.5-5.1) mmol/L Chloride 104 (98-107) mmol/L Carbon Dioxide 28 (21-32) mmol/L Anion Gap 12.0 (7-13) mEq/L BUN 14 (7-18) mg/dL Creatinine 0.73 (0.55-1.02) mg/dL Est Cr Clr Drug Dosing 114.56 mL/min Estimated GFR (MDRD) > 60 BUN/Creatinine Ratio 19.2 (No establ ref range) Glucose 87 (70-99) mg/dL Lactic Acid 0.8 (0.4-2.0) mmol/L Calcium 8.1 L (8.5-10.1) mg/dL Total Bilirubin 0.4 (0.2-1.0) mg/dL AST 13 L (15-37) U/L ALT 22 (14-59) U/L Alkaline Phosphatase 75 (46-116) U/L Total Protein 6.4 (6.4-8.2) g/dL Albumin 3.1 L (3.4-5.0) g/dL Globulin 3.3 Albumin/Globulin Ratio 0.94 Amylase 48 (25-115) U/L Lipase 62 L (73-393) U/L HCG, Qual Negative Urine Color (YELLOW) Urine Appearance (CLEAR) Urine pH (5.0-9.0) Ur Specific [place] (1.005-1.030) Urine Protein (NEGATIVE) Urine Glucose (UA) (NEGATIVE) Urine Ketones (NEGATIVE) Urine Occult Blood (NEGATIVE) Urine Nitrite (NEGATIVE) Urine Bilirubin (NEGATIVE) Urine Urobilinogen (0.2-1.0) mg/dL Ur Leukocyte Esterase (NEGATIVE) Urine Opiates Screen (NEGATIVE) Ur Oxycodone Screen (NEGATIVE) Urine Methadone Screen (NEGATIVE) Ur Barbiturates Screen (NEGATIVE) U Tricyclic Antidepress (NEGATIVE) Ur Phencyclidine Scrn (NEGATIVE) Ur Amphetamine Screen (NEGATIVE) U Methamphetamines Scrn (NEGATIVE) Urine MDMA Screen (NEGATIVE) U Benzodiazepines Scrn (NEGATIVE) Urine Cocaine Screen (NEGATIVE) U Marijuana (THC) Screen (NEGATIVE) 02/10/21 02/10/21 Range/Units 08:05 08:05 WBC (5.0-10.0) 10^3/uL RBC (4.2-5.4) 10^6/uL Hgb (12.0-16.0) g/dL Hct (37.0-47.0) % MCV (80-100) fL MCH (27.0-34.0) pg MCHC (33.0-35.0) g/dL Plt Count (150-450) 10^3/uL Neut % (Auto) (42.2-75.2) % Lymph % (Auto) (20.5-50.1) % [place] % (Auto) (2-8) % Eos % (Auto) (1.0-3.0) % Baso % (Auto) (0.0-1.0) % Sodium (136-145) mmol/L Potassium (3.5-5.1) mmol/L Chloride (98-107) mmol/L Carbon Dioxide (21-32) mmol/L Anion Gap (7-13) mEq/L BUN (7-18) mg/dL Creatinine (0.55-1.02) mg/dL Est Cr Clr Drug Dosing mL/min Estimated GFR (MDRD) BUN/Creatinine Ratio (No establ ref range) Glucose (70-99) mg/dL Lactic Acid (0.4-2.0) mmol/L Calcium (8.5-10.1) mg/dL Total Bilirubin (0.2-1.0) mg/dL AST (15-37) U/L ALT (14-59) U/L Alkaline Phosphatase (46-116) U/L Total Protein (6.4-8.2) g/dL Albumin (3.4-5.0) g/dL Globulin Albumin/Globulin Ratio Amylase (25-115) U/L Lipase (73-393) U/L HCG, Qual Urine Color Yellow (YELLOW) Urine Appearance Slightly cloudy (CLEAR) Urine pH 7.0 (5.0-9.0) Ur Specific [place] 1.025 (1.005-1.030) Urine Protein Negative (NEGATIVE) Urine Glucose (UA) Negative (NEGATIVE) Urine Ketones Negative (NEGATIVE) Urine Occult Blood Negative (NEGATIVE) Urine Nitrite Negative (NEGATIVE) Urine Bilirubin Negative (NEGATIVE) Urine Urobilinogen 0.2 (0.2-1.0) mg/dL Ur Leukocyte Esterase Trace H (NEGATIVE) Urine Opiates Screen Negative (NEGATIVE) Ur Oxycodone Screen Negative (NEGATIVE) Urine Methadone Screen Negative (NEGATIVE) Ur Barbiturates Screen Negative (NEGATIVE) U Tricyclic Antidepress Negative (NEGATIVE) Ur Phencyclidine Scrn Negative (NEGATIVE) Ur Amphetamine Screen Negative (NEGATIVE) U Methamphetamines Scrn Negative (NEGATIVE) Urine MDMA Screen Negative (NEGATIVE) U Benzodiazepines Scrn Negative (NEGATIVE) Urine Cocaine Screen Negative (NEGATIVE) U Marijuana (THC) Screen Negative (NEGATIVE) Meds: Medications Discontinued Medications Generic Name Dose Route Start Last Admin Trade Name Freq PRN Reason Stop Dose Admin Sodium Chloride 1,000 mls @ 999 mls/hr 02/10/21 07:16 02/10/21 07:29 Normal Saline IV 02/10/21 08:16 999 mls/hr .BOLUS ONE Administration - Re-Assessments/Exams Free Text/Narrative Re-Assessment/Exam: 02/10/21 Findings of examination and lab work reviewed with patient. Discussed supportive cares for constipation. Red flag signs and symptoms which would warrant reevaluation reviewed. Patient verbalized understanding and agreement with the plan of care. Departure - Departure Time of Disposition: 08:37 Disposition: Home, Self-Care 01 Condition: Good Clinical Impression: Constipation Qualifiers: Constipation type: unspecified constipation type Qualified Code(s): K59.00 - Constipation, unspecified Abdominal pain Qualifiers: Abdominal location: lower abdomen, unspecified Qualified Code(s): R10.30 - Lower abdominal pain, unspecified - Discharge Information *PRESCRIPTION DRUG MONITORING PROGRAM REVIEWED*: Not Applicable *COPY OF PRESCRIPTION DRUG MONITORING REPORT IN PATIENT JENNY: Not Applicable Forms: ED Department Discharge Additional Instructions: 1.) Increase water intake; aim for 6-8 bottles daily. 2.) Increase fruit and vegetable intake. 3.) You may try a stool softener if water and dietary changes do not help. 4.) Follow up with primary care provider, or return to the emergency department, with return of symptoms. Sepsis Event Note (ED) - Evaluation Sepsis Screening Result: No Definite Risk - Focused Exam Vital Signs: Vital Signs Temp Pulse Resp BP Pulse Ox 02/10/21 06:38 98.5 F 86 18 110/64 97
== END 2021-02-10 09:01 | disposition home or self-care (01) ==
LOC: DL.ED 06:30
DX: K59.00 Constipation, unspecified (principal); E11.9 Type 2 diabetes mellitus without complications
CPT/HCPCS: 36415; 80053; 80305; 81001; 82150; 83605; 83690; 84703; 85025; 87086; 99282; 99284; J7030

== ENCOUNTER 2021-04-26 19:38 | Emergency (ER) | payer MEDICAID ==
[2021-04-26 20:07] LABS: AMPHETAMINES,URINE NEGATIVE (NEGATIVE); BARBITURATES,URINE NEGATIVE (NEGATIVE); BENZODIAZEPINE,URINE NEGATIVE (NEGATIVE); MDMA (ECSTASY), URINE NEGATIVE (NEGATIVE); METHADONE,URINE NEGATIVE (NEGATIVE); METHAMPHETAMINES,URINE NEGATIVE (NEGATIVE); OPIATES,URINE NEGATIVE (NEGATIVE); OXYCODONE,URINE NEGATIVE (NEGATIVE); PHENCYCLIDINE,URINE NEGATIVE (NEGATIVE); TCA,URINE NEGATIVE (NEGATIVE)
[2021-04-26 20:15] VITALS: BP 124/86; PULSE 80
--- NOTE | 2021-04-26 20:35 | EDM.PDOC ---
<Wayne Guzman - Last Filed: 04/26/21 22:22> ED HPI GENERAL MEDICAL PROBLEM - General Chief Complaint: General Stated Complaint: WEAK, FEELS LIKE FAINTING, NUMB Time Seen by Provider: 04/26/21 20:30 Source of Information: Reports: Patient History Limitations: Reports: No Limitations - History of Present Illness INITIAL COMMENTS - FREE TEXT/NARRATIVE: Patient is a 25 year old female with past medical history significant for anxiety and panic disorder who presents to the ED for evaluation of near syncopal episode. She reports that she was at the store with her son today when she developed tunnel vision and nearly blacked out. She did not faint, lose consciousness or hit her head. She states that her vision rapidly improved when her son "kicked her out of it." She currently denies any similar symptoms but does have a headache. No neck stiffness or light sensitivity. She does report a slight sore throat, chills and fatigue. She denies cough, fevers, nightsweats, shortness of breath, muscle aches and joint aches. She has been eating and drinking normally and believes she has maintained hydration. No lower extremity pain or swelling. She is wondering about getting a COVID test. No known exposure. 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 Psychiatric History: Reports: Anxiety, Depression Endocrine/Metabolic History: Reports: Diabetes, Type II - Past Surgical History HEENT Surgical History: Reports: None Musculoskeletal Surgical History: Reports: Other (See Below) Other Musculoskeletal Surgeries/Procedures:: hair line fracture left ankle Social & Family History - Family History Family Medical History: No Pertinent Family History - Tobacco Use Tobacco Use Status *Q: Never Tobacco User Second Hand Smoke Exposure: No - Caffeine Use Caffeine Use: Reports: None - Recreational Drug Use Recreational Drug Use: No - Living Situation & Occupation Living situation: Reports: with Family Occupation: Employed ED ROS GENERAL - Review of Systems Review Of Systems: Comprehensive ROS is negative, except as noted in HPI. ED EXAM, GENERAL - Physical Exam Exam: See Below Exam Limited By: No Limitations General Appearance: Alert, WD/WN, No Apparent Distress Eye Exam: Bilateral Eye: EOMI, Normal Inspection Ears: Normal External Exam, Normal Canal, Hearing Grossly Normal Ear Exam: Bilateral Ear: Auricle Normal Nose: Normal Inspection, Normal Mucosa, No Blood Throat/Mouth: Normal Inspection, Inflammation Head: Atraumatic, Normocephalic Neck: Normal Inspection, Supple, Non-Tender, Full Range of Motion Respiratory/Chest: No Respiratory Distress, Lungs Clear, Normal Breath Sounds, No Accessory Muscle Use, Chest Non-Tender Cardiovascular: Normal Peripheral Pulses, Regular Rate, Rhythm, No Edema, No Gallop, No JVD, No Murmur, No Rub GI/Abdominal: Soft, Non-Tender, No Organomegaly, No Distention, No Abnormal Bruit (Female) Exam: Deferred Rectal (Female) Exam: Deferred Back Exam: Normal Inspection, Full Range of Motion Extremities: Normal Inspection, Normal Range of Motion, No Pedal Edema Neurological: Alert, Oriented, CN II-XII Intact, Normal Cognition, Normal Gait, Normal Reflexes Psychiatric: Normal Affect, Normal Mood Skin Exam: Warm, Dry, Intact Lymphatic: No Adenopathy Departure - Departure Time of Disposition: 21:49 Disposition: Home, Self-Care 01 Condition: Good Clinical Impression: Near syncope - Discharge Information *PRESCRIPTION DRUG MONITORING PROGRAM REVIEWED*: Not Applicable *COPY OF PRESCRIPTION DRUG MONITORING REPORT IN PATIENT JENNY: Not Applicable Referrals: Adan Shah [Primary Care Provider] - Forms: ED Department Discharge Additional Instructions: Return to ER if symptoms return and persist Drink plenty of liquids Rest Sepsis Event Note (ED) - Evaluation Sepsis Screening Result: No Definite Risk <Stephanie Mart - Last Filed: 04/26/21 23:09> ED HPI GENERAL MEDICAL PROBLEM - History of Present Illness Onset: Today, Sudden #1 Interpretation EKG Date: 04/26/21 Time: 21:06 Rhythm: NSR Rate (Beats/Min): 70 [place]: Normal P-Wave: Present QRS: Normal ST-T: Normal QT: Normal Comparison: NA - No Prior EKG Course - Vital Signs Last Recorded V/S: Last Vital Signs Temp 97.3 F 04/26/21 19:51 Pulse 80 04/26/21 19:51 Resp 16 04/26/21 19:51 BP 124/86 04/26/21 19:51 Pulse Ox 98 04/26/21 19:51 - Orders/Labs/Meds Orders: Active Orders 24 hr Category Date Time Status CULTURE URINE [RM] Stat Lab 04/26/21 17:51 Received Labs: Laboratory Tests 04/26/21 04/26/21 04/26/21 Range/Units 17:51 17:51 17:51 WBC (5.0-10.0) 10^3/uL RBC (4.2-5.4) 10^6/uL Hgb (12.0-16.0) g/dL Hct (37.0-47.0) % MCV (80-100) fL MCH (27.0-34.0) pg MCHC (33.0-35.0) g/dL Plt Count (150-450) 10^3/uL Neut % (Auto) (42.2-75.2) % Lymph % (Auto) (20.5-50.1) % [place] % (Auto) (2-8) % Eos % (Auto) (1.0-3.0) % Baso % (Auto) (0.0-1.0) % Sodium (136-145) mmol/L Potassium (3.5-5.1) mmol/L Chloride (98-107) mmol/L Carbon Dioxide (21-32) mmol/L Anion Gap (7-13) mEq/L BUN (7-18) mg/dL Creatinine (0.55-1.02) mg/dL Est Cr Clr Drug Dosing mL/min Estimated GFR (MDRD) BUN/Creatinine Ratio (No establ ref range) Glucose (70-99) mg/dL Calcium (8.5-10.1) mg/dL Total Bilirubin (0.2-1.0) mg/dL AST (15-37) U/L ALT (14-59) U/L Alkaline Phosphatase (46-116) U/L Total Protein (6.4-8.2) g/dL Albumin (3.4-5.0) g/dL Globulin Albumin/Globulin Ratio Urine Color Yellow (YELLOW) Urine Appearance Clear (CLEAR) Urine pH 6.5 (5.0-9.0) Ur Specific [place] 1.015 (1.005-1.030) Urine Protein Negative (NEGATIVE) Urine Glucose (UA) Negative (NEGATIVE) Urine Ketones Negative (NEGATIVE) Urine Occult Blood Trace-intact H (NEGATIVE) Urine Nitrite Negative (NEGATIVE) Urine Bilirubin Negative (NEGATIVE) Urine Urobilinogen 0.2 (0.2-1.0) mg/dL Ur Leukocyte Esterase Small H (NEGATIVE) Urine RBC 0-5 (0-5) /HPF Urine WBC 5-10 H (0-5/HPF) /HPF Ur Epithelial Cells Many H (NOT SEEN) /HPF Urine Bacteria Moderate H (0-FEW/HPF) /HPF Urine HCG, Qual Negative Urine Opiates Screen Negative (NEGATIVE) Ur Oxycodone Screen Negative (NEGATIVE) Urine Methadone Screen Negative (NEGATIVE) Ur Barbiturates Screen Negative (NEGATIVE) U Tricyclic Antidepress Negative (NEGATIVE) Ur Phencyclidine Scrn Negative (NEGATIVE) Ur Amphetamine Screen Negative (NEGATIVE) U Methamphetamines Scrn Negative (NEGATIVE) Urine MDMA Screen Negative (NEGATIVE) U Benzodiazepines Scrn Negative (NEGATIVE) Urine Cocaine Screen Negative (NEGATIVE) U Marijuana (THC) Screen Negative (NEGATIVE) SARS-CoV-2 RNA (JOSEPH) (NEGATIVE) 04/26/21 04/26/21 04/26/21 Range/Units 20:53 20:53 21:07 WBC 9.6 (5.0-10.0) 10^3/uL RBC 5.12 (4.2-5.4) 10^6/uL Hgb 14.8 D (12.0-16.0) g/dL Hct 45.4 (37.0-47.0) % MCV 88.7 (80-100) fL MCH 28.9 (27.0-34.0) pg MCHC 32.6 L (33.0-35.0) g/dL Plt Count 348 (150-450) 10^3/uL Neut % (Auto) 69.6 (42.2-75.2) % Lymph % (Auto) 22.2 (20.5-50.1) % [place] % (Auto) 6.8 (2-8) % Eos % (Auto) 1.0 (1.0-3.0) % Baso % (Auto) 0.4 (0.0-1.0) % Sodium 140 (136-145) mmol/L Potassium 4.1 (3.5-5.1) mmol/L Chloride 102 (98-107) mmol/L Carbon Dioxide 28 (21-32) mmol/L Anion Gap 14.1 H (7-13) mEq/L BUN 9 (7-18) mg/dL Creatinine 0.66 (0.55-1.02) mg/dL Est Cr Clr Drug Dosing 126.71 mL/min Estimated GFR (MDRD) > 60 BUN/Creatinine Ratio 13.6 (No establ ref range) Glucose 89 (70-99) mg/dL Calcium 9.2 (8.5-10.1) mg/dL Total Bilirubin 0.3 (0.2-1.0) mg/dL AST 16 (15-37) U/L ALT 23 (14-59) U/L Alkaline Phosphatase 103 (46-116) U/L Total Protein 8.3 H (6.4-8.2) g/dL Albumin 4.2 (3.4-5.0) g/dL Globulin 4.1 Albumin/Globulin Ratio 1.0 Urine Color (YELLOW) Urine Appearance (CLEAR) Urine pH (5.0-9.0) Ur Specific [place] (1.005-1.030) Urine Protein (NEGATIVE) Urine Glucose (UA) (NEGATIVE) Urine Ketones (NEGATIVE) Urine Occult Blood (NEGATIVE) Urine Nitrite (NEGATIVE) Urine Bilirubin (NEGATIVE) Urine Urobilinogen (0.2-1.0) mg/dL Ur Leukocyte Esterase (NEGATIVE) Urine RBC (0-5) /HPF Urine WBC (0-5/HPF) /HPF Ur Epithelial Cells (NOT SEEN) /HPF Urine Bacteria (0-FEW/HPF) /HPF Urine HCG, Qual Urine Opiates Screen (NEGATIVE) Ur Oxycodone Screen (NEGATIVE) Urine Methadone Screen (NEGATIVE) Ur Barbiturates Screen (NEGATIVE) U Tricyclic Antidepress (NEGATIVE) Ur Phencyclidine Scrn (NEGATIVE) Ur Amphetamine Screen (NEGATIVE) U Methamphetamines Scrn (NEGATIVE) Urine MDMA Screen (NEGATIVE) U Benzodiazepines Scrn (NEGATIVE) Urine Cocaine Screen (NEGATIVE) U Marijuana (THC) Screen (NEGATIVE) SARS-CoV-2 RNA (JOSEPH) Negative (NEGATIVE) - Re-Assessments/Exams Free Text/Narrative Re-Assessment/Exam: 04/26/21 22:17 I saw and evaluated the patient. Discussed with resident and agree with residents findings and plan as documented in the residents note. Sepsis Event Note (ED) - Focused Exam Vital Signs: Vital Signs Temp Pulse Resp BP Pulse Ox 04/26/21 19:51 97.3 F 80 16 124/86 98 - My Orders Last 24 Hours: My Active Orders 04/26/21 17:51 CULTURE URINE [RM] Stat - Assessment/Plan Last 24 Hours: My Active Orders 04/26/21 17:51 CULTURE URINE [RM] Stat
[2021-04-26 21:29] LABS: ANION GAP 14.1 mEq/L (7-13); CHLORIDE,CL 102 mmol/L (98-107); SODIUM,NA 140 mmol/L (136-145)
== END 2021-04-26 22:36 | disposition home or self-care (01) ==
LOC: DL.ED 19:38
DX: R55 Syncope and collapse (principal); E11.9 Type 2 diabetes mellitus without complications; Z20.822 Contact with and (suspected) exposure to COVID-19
CPT/HCPCS: 36415; 80053; 80305-QW; 81001; 81003; 81025; 85025; 87086; 93005; 99284-25; U0002

== ENCOUNTER 2022-01-18 04:51 | Emergency (ER) | payer MEDICAID ==
[2022-01-18] MEDS ORDERED: LORazepam 2 MG/ML SDV IVPUSH PRN (05:06)
[2022-01-18 05:48] LABS: ANION GAP 14.8 mEq/L (7-13); CHLORIDE,CL 102 mmol/L (98-107); SODIUM,NA 138 mmol/L (136-145)
[2022-01-18 06:16] VITALS: BP 117/77
[2022-01-18 06:38] VITALS: PULSE 82
[2022-01-18 06:48] LABS: AMPHETAMINES,URINE NEGATIVE (NEGATIVE); BARBITURATES,URINE NEGATIVE (NEGATIVE); BENZODIAZEPINE,URINE NEGATIVE (NEGATIVE); MDMA (ECSTASY), URINE NEGATIVE (NEGATIVE); METHADONE,URINE NEGATIVE (NEGATIVE); METHAMPHETAMINES,URINE NEGATIVE (NEGATIVE); OPIATES,URINE NEGATIVE (NEGATIVE); OXYCODONE,URINE NEGATIVE (NEGATIVE); PHENCYCLIDINE,URINE NEGATIVE (NEGATIVE); TCA,URINE NEGATIVE (NEGATIVE)
[2022-01-18] MEDS ORDERED: Ketorolac 30 MG/ML SDV IVPUSH ONE (07:00)
[2022-01-18] MEDS ORDERED: Sodium Chloride 0.9% 1,000 ML IV SCH (07:45)
[2022-01-18] MEDS ORDERED: levETIRAcetam 500 MG Tab PO ONE (08:39)
== END 2022-01-18 09:11 | disposition home or self-care (01) ==
LOC: DL.ED 04:51
DX: R56.9 Unspecified convulsions (principal); E11.9 Type 2 diabetes mellitus without complications
CPT/HCPCS: 36415; 70450; 73030-LT; 80053; 80305-QW; 80307; 81003; 82140; 82150; 83605; 83735; 84703; 85025; 85610; 87040; 93005; 93010; 96374; 99285; 99285-25; A9270-GY; J1885; J7030

== ENCOUNTER 2024-11-28 00:32 | Emergency (ER) | payer MEDICAID ==
[2024-11-28 01:27] VITALS: BP 115/85; PULSE 79
[2024-11-28 01:47] LABS: BASOPHILS PERCENT AUTO 0.3 % (0.0-1.0); EOSINOPHILS PERCENT AUTO 0.2 % (1.0-3.0); HEMATOCRIT 42.3 % (37.0-47.0); HEMOGLOBIN 13.7 g/dL (12.0-16.0); LYMPHOCYTES PERCENT AUTO 10.8 % (20.5-50.1); MEAN CORPUSCULAR HEMOGLOBIN 28.5 pg (27.0-34.0); MEAN CORPUSCULAR HGB CONC 32.4 g/dL (33.0-35.0); MEAN CORPUSCULAR VOLUME 87.9 fL (80-100); MONOCYTES PERCENT AUTO 4.9 % (2-8); NEUTROPHILS PERCENT AUTO 83.8 % (42.2-75.2); PLATELET COUNT,PLT 386 10^3/uL (150-450); RED BLOOD CELL COUNT 4.81 10^6/uL (4.2-5.4); WHITE BLOOD CELL COUNT,WBC 14.5 10^3/uL (5.0-10.0)
[2024-11-28 02:07] LABS: ALANINE AMINOTRANSFERASE,ALT 41 U/L (14-59); ALKALINE PHOSPHATASE 89 U/L (46-116); ANION GAP 16.1 mEq/L (7-13); ASPARTATE AMNIOTRANSFERASE,AST 25 U/L (15-37); BILIRUBIN TOTAL 0.5 mg/dL (0.2-1.0); BLOOD UREA NITROGEN,BUN 10 mg/dL (7-18); BUN/CREATININE RATIO 12.8 (No establ ref range); CALCIUM 9.5 mg/dL (8.5-10.1); CARBON DIOXIDE,CO2 26 mmol/L (21-32); CHLORIDE,CL 103 mmol/L (98-107); CREATINE KINASE,CK 125 U/L (16-191); CREATININE 0.78 mg/dL (0.55-1.02); EST CRCL DRUG DOSING (CG) 103.49 mL/min; ESTIMATED GFR 105 mL/min (>=60); ETHANOL BLOOD MEDICAL < 3 mg/dL (0); GLUCOSE RANDOM 101 mg/dL (70-99); MAGNESIUM 2.4 mg/dL (1.8-2.4); POTASSIUM,K 4.1 mmol/L (3.5-5.1); SODIUM,NA 141 mmol/L (136-145)
[2024-11-28 03:04] LABS: AMPHETAMINES,URINE NEGATIVE (NEGATIVE); BARBITURATES,URINE NEGATIVE (NEGATIVE); BENZODIAZEPINE,URINE NEGATIVE (NEGATIVE); MDMA (ECSTASY), URINE NEGATIVE (NEGATIVE); METHADONE,URINE NEGATIVE (NEGATIVE); METHAMPHETAMINES,URINE NEGATIVE (NEGATIVE); OPIATES,URINE NEGATIVE (NEGATIVE); OXYCODONE,URINE NEGATIVE (NEGATIVE); PHENCYCLIDINE,URINE NEGATIVE (NEGATIVE); TCA,URINE NEGATIVE (NEGATIVE)
[2024-11-28 03:06] LABS: APPEARANCE,URINE SLIGHTLY CLOUDY (CLEAR); COLOR,URINE YELLOW (YELLOW); PH,URINE 5.5 (5.0-9.0)
[2024-11-28] MEDS: levETIRAcetam 500 MG Tab PO STA (03:06)
[2024-11-28] MEDS: Take Home: levETIRAcetam 500 MG Tab, 4 Tab Pack PO ONE (03:06)
[2024-11-28 03:07] LABS: BILIRUBIN,URINE NEGATIVE (NEGATIVE); GLUCOSE,URINE NEGATIVE (NEGATIVE); KETONES,URINE 15 (NEGATIVE); NITRITE,URINE NEGATIVE (NEGATIVE); OCCULT BLOOD,URINE TRACE-INTACT (NEGATIVE); PROTEIN,URINE NEGATIVE (NEGATIVE); UROBILINOGEN,URINE 0.2 mg/dL (0.2-1.0)
[2024-11-28 03:08] LABS: LEUKOCYTE ESTERASE,URINE NEGATIVE (NEGATIVE)
[2024-11-28 03:17] LABS: AMORPHOUS SEDIMENT,URINE FEW /HPF (NOT SEEN); BACTERIA,URINE FEW /HPF (0-FEW/HPF); EPITHELIAL CELLS,URINE FEW /HPF (NOT SEEN); MUCUS,URINE MODERATE /LPF (NOT SEEN); RBC,URINE 0-5 /HPF (0-5)
== END 2024-11-28 04:02 | disposition home or self-care (01) ==
LOC: DL.ED 00:32
DX: R56.9 Unspecified convulsions (principal); E11.9 Type 2 diabetes mellitus without complications; F17.290 Nicotine dependence, other tobacco product, uncomplicated; Z86.16 Personal history of COVID-19
CPT/HCPCS: 36415; 80053; 80305; 80307; 81001; 82550; 83605; 83735; 85025; 99284; A9270